=== PATIENT | male | born 1960 ===

== ENCOUNTER 2021-12-27 10:10 | Emergency (ER) | payer OTHER | END 2021-12-27 11:17 | disposition home or self-care (01) | LOC: JP.ED 10:10 | DX: K04.7 Periapical abscess without sinus (principal); K03.81 Cracked tooth; E78.00 Pure hypercholesterolemia, unspecified; Z79.899 Other long term (current) drug therapy | CPT/HCPCS: 99281; 99282 ==

== ENCOUNTER 2022-08-06 07:56 | Day surgery (SDC) | payer OTHER ==
[2022-08-06] MEDS ORDERED: Propofol 200 MG/20 ML SDV ONE (08:20)
[2022-08-06] MEDS ORDERED: fentaNYL 50 MCG/ML SDV ONE (08:20)
[2022-08-06] MEDS ORDERED: Sodium Chloride 0.9% 1,000 ML IV SCH (08:30)
== END 2022-08-06 10:45 | disposition home or self-care (01) ==
LOC: JP.SDS 07:56
PROVIDERS: ATTEND Surgery
DX: Z12.11 Encounter for screening for malignant neoplasm of colon (principal); K57.30 Diverticulosis of large intestine without perforation or abscess without bleeding; Z79.899 Other long term (current) drug therapy
CPT/HCPCS: 45378; J2704; J3010; J7030